=== PATIENT | male | born 1975 | race Caucasian/White ===

== ENCOUNTER 2017-12-08 13:13 | Emergency (ER) | payer SELFPAY ==
[~2017-12-08] VITALS: Ht 177.8 cm; Wt 100.0 kg
[~2017-12-08 13:13] MED LIST: ALBU8I INH; IBUP600T26 PO; ZOFR4TAB3 PO; [UNRECOGNIZED DRUG - REMARK]
[2017-12-08 13:38] VITALS: BP 188/84; PULSE 99; RESP 16; TEMP 98.4; O2SAT 97
[2017-12-08] MEDS ORDERED: XOPEAER4 INH (13:49)
[2017-12-08] MEDS ORDERED: LISI-519 PO (13:49)
--- NOTE | 2017-12-08 14:07 | PD ---
HPI Chief Complaint: Musculoskeletal Complaint Time Seen by Provider: 13:59 Travel History International Travel<30 days: No Contact w/Intl Traveler<30days: No Traveled to known affect area: No History of Present Illness HPI 42-year-old male presents for evaluation of left knee pain. Symptoms started 5 days ago when he was doing yardwork. He believes that he twisted his knee. He has been ambulating with a walker. Pain is aching, worse with flexion, ambulation. He has been using ibuprofen with mild relief. He has no other complaints at this time. [facility] Past Medical History Asthma: Yes High Cholesterol: Yes COPD: Yes Diminished Hearing: No Hypertension: Yes Respiratory: Yes (ASTHMA) Tetanus Vaccination: Unknown Influenza Vaccination: No ?: Not Past Surgical History Genitourinary Surgery: Yes (undecendid testicle) Tonsillectomy: Yes Family History Family Hypercholesterolemia: Yes Social History Alcohol Use: Yes (12 PK A WEEK ) Tobacco Use: No (former) Substance Use: No (COCAINE (DENIES)) Allergies-Medications (Allergen,Severity, Reaction): Coded Allergies: No Known Allergies (Unverified Adverse Reaction, Unknown, 12/08/17) Reported Meds & Prescriptions Reported Meds & Active Scripts Active Review of Systems General / Constitutional: No: Fever, Chills Musculoskeletal: Positive: Limited ROM, Pain Physical Exam Narrative GENERAL: Well-nourished male in no acute distress SKIN: Warm and dry. Minor abrasions noted to the left ankle. HEAD: Atraumatic. Normocephalic. EYES: Pupils equal and round. No scleral icterus. No injection or drainage. ENT: No nasal bleeding or discharge. Mucous membranes pink and moist. NECK: Trachea midline. No JVD. CARDIOVASCULAR: Regular rate and rhythm. No murmur appreciated. RESPIRATORY: No accessory muscle use. Clear to auscultation. Breath sounds equal bilaterally. MUSCULOSKELETAL: No obvious deformities. Tender to palpation inferior aspect of left knee joint. There is pain with flexion and extension. There is no obvious laxity on anterior/posterior stress. Distal pulses, sensation preserved. NEUROLOGICAL: Awake and alert. No obvious cranial nerve deficits. Motor grossly within normal limits. Normal speech. Data Data Last Documented VS Vital Signs Date Time Temp Pulse Resp B/P (MAP) Pulse Ox O2 Delivery O2 Flow Rate FiO2 12/08/17 13:38 98.4 99 16 188/84 (738) 71 Orders Orders Knee, Complete (4vws) (12/08/17 ) MDM Medical Decision Making Medical Screen Exam Complete: Yes Emergency Medical Condition: Yes Medical Record Reviewed: Yes Differential Diagnosis Ligamentous disruption, meniscal disruption, strain, fracture Narrative Course 42-year-old male with left knee pain after twisting his knee doing yardwork. Extremities reveals small joint effusion with no acute bony abnormality. The patient is currently using a walker. He will be given a knee immobilizer. Recommend an outpatient follow-up with primary care physician in 2 weeks for possible MRI imaging if symptoms persist. Diagnosis Primary Impression: Knee internal derangement Additional Instructions: Take Tylenol or Motrin for pain. Rest. Ice several times a day 15 minutes at a time. Follow-up with primary care physician in 2 weeks. Return for any emergent medical conditions. Med/Other Pt SpecificInfo: Orthopedic Instructions Disposition: 01 DISCHARGE HOME Condition: Stable Joesph Sims Dec 08, 2017 14:07
--- NOTE | 2017-12-08 14:28 | RADRPT ---
EXAM DATE/TIME: 12/08/2017 14:12 [facility] COMPARISON: No previous studies available for comparison. INDICATIONS : Left knee pain with no injury . MEDICAL HISTORY : None. SURGICAL HISTORY : None. ENCOUNTER: Initial ACUITY: 4 - 6 days PAIN SCORE: 9/10 LOCATION: Left anterior knee FINDINGS: Multiple views of the left knee were obtained and demonstrate diffuse osteopenia and normal alignment . There is no acute fracture underlying bony abnormality. The joint spaces are preserved. There is mi ld fullness in the suprapatella bursa region. There is no evidence of a joint body. CONCLUSION: Osteopenia and small joint effusion. Stephane Faulkner MD on December 08, 2017 at 14:25 Board Certified Radiologist. This report was verified electronically.
== END 2017-12-08 15:19 | disposition home or self-care (01) ==
LOC: PHEFT 13:13
DX: M23.90 Unspecified internal derangement of unspecified knee (principal); E78.00 Pure hypercholesterolemia, unspecified; J44.9 Chronic obstructive pulmonary disease, unspecified; I10 Essential (primary) hypertension
CPT/HCPCS: 73564; 99283; L1830

== ENCOUNTER 2018-03-08 17:30 | Emergency (ER) | payer SELFPAY ==
[~2018-03-08] VITALS: Ht 180.3 cm; Wt 93.6 kg
[~2018-03-08 17:30] MED LIST changes: -ALBU8I INH; -IBUP600T26 PO; +LISI-519 PO; +XOPEAER4 INH; -ZOFR4TAB3 PO; -[UNRECOGNIZED DRUG - REMARK]
[2018-03-08 17:31] VITALS: BP 168/95; PULSE 114; RESP 18; TEMP 97.5; O2SAT 97
[2018-03-08] MEDS ORDERED: SODIUM CHLORIDE 0.9% FLUSH 10 ML FLUSH IVF PRN (17:45)
[2018-03-08] MEDS ORDERED: methylPREDNISolone SOD SUCC 125 MG/2 ML VIAL IV PUSH ONE (17:45)
[2018-03-08] MEDS ORDERED: SODIUM CHLOR 0.9% 1000 ML INJ 1,000 ML IV ONE (17:45)
[2018-03-08] MEDS: RESP: ALBUTEROL 2.5 MG/IPRATROPIUM 0.5 MG NEB (SCH) INH ×2 (17:50→17:51)
--- NOTE | 2018-03-08 17:52 | PD ---
HPI Chief Complaint: Respiratory Symptoms Time Seen by Provider: 17:38 Travel History International Travel<30 days: No Contact w/Intl Traveler<30days: No Traveled to known affect area: No History of Present Illness HPI Patient is a 42 year old male who presents to the ER with c/o of COPD exacerbation. Patient reports that he has had a nonproductive cough, wheezing, has been having fevers and chills for the past 2 days. Patient reports that he has run out of his albuterol nebulizers as well as his rescue inhaler. Patient reports that he was a past smoker. He did not have the influenza vaccine this year. Denies chest pain. Reports SOB with wheezing. PFSH Past Medical History Asthma: Yes Cardiovascular Problems: Yes (htn on meds) High Cholesterol: Yes COPD: Yes Diminished Hearing: No Hypertension: Yes Respiratory: Yes (asthma, copd) Past Surgical History Genitourinary Surgery: Yes (undecendid testicle) Tonsillectomy: Yes Family History Family Hypercholesterolemia: Yes Social History Alcohol Use: Yes (12 PK A WEEK ) Tobacco Use: No (former) Substance Use: No (COCAINE (DENIES)) Allergies-Medications (Allergen,Severity, Reaction): Coded Allergies: No Known Allergies (Unverified Adverse Reaction, Unknown, 03/08/18) Reported Meds & Prescriptions Reported Meds & Active Scripts Active Albuterol Neb (Albuterol Sulfate) 2.5 Mg/3 Ml Neb 2.5 Mg NEB Q4HR NEB While awake Prednisone 20 Mg Tab 20 Mg PO BID 5 Days Proair Hfa 8.5 GM Inh (Albuterol Sulfate) 90 Mcg/Act Aer 2 Puff INH Q4-6H PRN 108 mcg/actuation Azithromycin 500 Mg Tab 500 Mg PO DAILY Reported Albuterol Neb (Albuterol Sulfate) 0.63 Mg/3 Ml Neb 0.63 Mg NEB Q4HR NEB PRN Lisinopril 20 Mg Tab 20 Mg PO DAILY Xopenex Hfa 15 GM Inh (Levalbuterol 15 GM Inh) 45 Mcg/Act Aer 90 Mcg INH Q4HR Shake well before using. (1 puff = 45 mcg) Review of Systems General / Constitutional: Positive: Fever, No: Chills Eyes: No: Visual changes HENT: No: Headaches Cardiovascular: No: Chest Pain or Discomfort Respiratory: Positive: Cough, Shortness of Breath, Wheezing Gastrointestinal: No: Abdominal Pain Genitourinary: No: Dysuria Musculoskeletal: No: Pain Skin: No Rash Neurologic: No: Weakness Psychiatric: No: Depression Endocrine: No: Polydipsia Hematologic/Lymphatic: No: Easy Bruising Physical Exam Narrative GENERAL: mild distress SKIN: Focused skin assessment warm/dry. HEAD: Atraumatic. Normocephalic. EYES: Pupils equal and round. No scleral icterus. No injection or drainage. ENT: No nasal bleeding or discharge. Mucous membranes pink and moist. NECK: Trachea midline. No JVD. CARDIOVASCULAR: Tachycardia. No murmur appreciated. RESPIRATORY: Diffuse wheezing. Clear to auscultation. Breath sounds equal bilaterally. GASTROINTESTINAL: Abdomen soft, non-tender, nondistended. Hepatic and splenic margins not palpable. MUSCULOSKELETAL: No obvious deformities. No clubbing. No cyanosis. No edema. NEUROLOGICAL: Awake and alert. No obvious cranial nerve deficits. Motor grossly within normal limits. Normal speech. PSYCHIATRIC: Appropriate mood and affect; insight and judgment normal. Data Data Last Documented VS Vital Signs Date Time Temp Pulse Resp B/P (MAP) Pulse Ox O2 Delivery O2 Flow Rate FiO2 03/08/18 18:09 93 Room Air 03/08/18 18:07 105 20 03/08/18 17:31 97.5 168/95 (119) Orders Orders Complete Blood Count With Diff (03/08/18 17:42) Basic Metabolic Panel (Bmp) (03/08/18 17:42) Influenzae A/B Antigen (03/08/18 17:42) Iv Access Insert/Monitor (03/08/18 17:42) Ecg Monitoring (03/08/18 17:42) Oximetry (03/08/18 17:42) Chest, Single Ap (03/08/18 17:42) Sodium Chloride 0.9% Flush (Ns Flush) (03/08/18 17:45) Methylprednisolone So Succ Inj (Solumedr (03/08/18 17:45) Albuterol-Ipratropium Neb (Duoneb Neb) (03/08/18 17:45) Sodium Chlor 0.9% 1000 Ml Inj (Ns 1000 M (03/08/18 17:45) Azithromycin Inj (Zithromax Inj) (03/08/18 18:30) Labs Laboratory Tests Test 03/08/18 17:58 White Blood Count 11.7 TH/MM3 Red Blood Count 5.06 MIL/MM3 Hemoglobin 14.3 GM/DL Hematocrit 42.4 % Mean Corpuscular Volume 83.8 FL Mean Corpuscular Hemoglobin 28.2 PG Mean Corpuscular Hemoglobin Concent 33.6 % Red Cell Distribution Width 13.6 % Platelet Count 302 TH/MM3 Mean Platelet Volume 7.9 FL Neutrophils (%) (Auto) 77.2 % Lymphocytes (%) (Auto) 12.6 % Monocytes (%) (Auto) 7.6 % Eosinophils (%) (Auto) 1.6 % Basophils (%) (Auto) 1.0 % Neutrophils # (Auto) 9.0 TH/MM3 Lymphocytes # (Auto) 1.5 TH/MM3 Monocytes # (Auto) 0.9 TH/MM3 Eosinophils # (Auto) 0.2 TH/MM3 Basophils # (Auto) 0.1 TH/MM3 CBC Comment DIFF FINAL Differential Comment Blood Urea Nitrogen 8 MG/DL Creatinine 0.92 MG/DL Random Glucose 82 MG/DL Calcium Level 8.9 MG/DL Sodium Level 138 MEQ/L Potassium Level 3.5 MEQ/L Chloride Level 107 MEQ/L Carbon Dioxide Level 26.0 MEQ/L Anion Gap 5 MEQ/L Estimat Glomerular Filtration Rate 89 ML/MIN MDM Medical Decision Making Medical Screen Exam Complete: Yes Emergency Medical Condition: Yes Medical Record Reviewed: Yes Interpretation(s) Vital Signs Date Time Temp Pulse Resp B/P (MAP) Pulse Ox O2 Delivery O2 Flow Rate FiO2 03/08/18 18:09 93 Room Air 03/08/18 18:07 105 20 93 Room Air 03/08/18 17:31 97.5 114 18 168/95 (119) 97 Differential Diagnosis COPD exacerbation, pneumonia, influenza Narrative Course During the course of the patients emergency department visit, the patients history, examination, and differential diagnosis were reviewed with the patient. The patient was placed on a monitor tech with oximetry and frequent blood pressure monitoring. The patient had an IV access obtained and blood work sent for analysis. The patient was initially provided IVF, IV steroids, neb treatments The patients laboratory studies were reviewed and remarkable for [-]. Radiology studies were reviewed and remarkable for Last Impressions Chest X-Ray 03/08/18 8490 Signed Impressions: Service Date/Time: Thursday, March 08, 2018 17:51 - CONCLUSION: 1. No acute cardiopulmonary disease. Lavelle Bozorgmanesh, MD Microbiology Date/Time Source Procedure Growth Status 03/08/18 17:58 Nasal Aspirate Influenza Types A,B Antigen (DERRICK) - Final NEGATIVE FOR FLU A AND B ANTIGEN.... Complete Patient reevaluated, patient feeling much better at this time. Patient with decreased wheezing. Patient will be discharged home with prescription for steroids as well as albuterol. He will follow-up with his primary care doctor and will return to the emergency room as needed. Diagnosis Primary Impression: COPD with exacerbation Patient Instructions: General Instructions Additional Instructions: Please follow up with your primary care doctor in 2-3 days Return to the ER if symptoms worsen or progress Return to the ER as needed Med/Other Pt SpecificInfo: Prescription(s) given Scripts Albuterol Neb (Albuterol Neb) 2.5 Mg/3 Ml Neb 2.5 MG NEB Q4HR NEB for Breathing Treatment, #60 NEBULE 0 Refills While awake Prov: Blanca Stevenson DO 03/08/18 Prednisone (Prednisone) 20 Mg Tab 20 MG PO BID for 5 Days, #10 TAB 0 Refills Prov: Blanca Stevenson DO 03/08/18 Albuterol 8.5 GM Inh (Proair Hfa 8.5 GM Inh) 90 Mcg/Act Aer 2 PUFF INH Q4-6H Y for SHORTNESS OF BREATH, #1 INHALER 0 Refills 108 mcg/actuation Prov: Blanca Stevenson DO 03/08/18 Azithromycin (Azithromycin) 500 Mg Tab 500 MG PO DAILY for Infection, #5 TAB 0 Refills Prov: Blanca Stevenson DO 03/08/18 Disposition: 01 DISCHARGE HOME Condition: Stable Blanca Stevenson DO Mar 08, 2018 17:52
[2018-03-08] MEDS ORDERED: ALBU0.63 NEB (18:05)
[2018-03-08] MEDS ORDERED: LISI-515 PO (18:05)
--- NOTE | 2018-03-08 18:07 | RADRPT ---
EXAM DATE/TIME: 03/08/2018 17:51 [facility] COMPARISON: No previous studies available for comparison. INDICATIONS : Short of breath, chest pain MEDICAL HISTORY : Chronic obstructive pulmonary disease. SURGICAL HISTORY : None. ENCOUNTER: Initial ACUITY: 2 days PAIN SCORE: 8/10 LOCATION: Bilateral chest FINDINGS: A single view of the chest demonstrates the lungs to be symmetrically aerated without evidence of mas s, infiltrate or effusion. The cardiomediastinal contours are unremarkable. Osseous structures are intact. CONCLUSION: 1. No acute cardiopulmonary disease. Lavelle Almendarez MD on March 08, 2018 at 18:04 Board Certified Radiologist. This report was verified electronically.
[2018-03-08 18:09] VITALS: O2SAT 93
[2018-03-08 18:18] LABS: BASOPHIL # 0.1 TH/MM3 (0-0.2); EOSINOPHIL # 0.2 TH/MM3 (0-0.4); EOSINOPHIL % 1.6 % (0.0-4.0); HEMATOCRIT 42.4 % (39.0-51.0); HEMOGLOBIN 14.3 GM/DL (13.0-17.0); LYMPH % 12.6 % (9.0-44.0); LYMPHOCYTE # 1.5 TH/MM3 (1.0-4.8); MEAN CELL VOLUME 83.8 FL (80.0-100.0); MEAN CORPUSCULAR HEMOGLOBIN 28.2 PG (27.0-34.0); MEAN CORPUSCULAR HGB CONC 33.6 % (32.0-36.0); MEAN PLATELET VOLUME 7.9 FL (7.0-11.0); MONO % 7.6 % (0.0-8.0); MONOCYTE # 0.9 TH/MM3 (0-0.9); NEUT % 77.2 % (16.0-70.0); PLATELET COUNT 302 TH/MM3 (150-450); RED BLOOD COUNT 5.06 MIL/MM3 (4.50-5.90); RED CELL DISTRIBUTION WIDTH 13.6 % (11.6-17.2); WHITE BLOOD COUNT 11.7 TH/MM3 (4.0-11.0)
[2018-03-08] MEDS ORDERED: AZITHROMYCIN INJ 500 MG in SODIUM CHLOR 0.9% 250 ML INJ 250 ML IV ONE (18:30)
[2018-03-08 18:31] LABS: CALCIUM 8.9 MG/DL (8.5-10.1)
[2018-03-08 18:35] LABS: CREATININE 0.92 MG/DL (0.60-1.30)
[2018-03-08] MEDS ORDERED: AZIT500T2 PO (18:36)
[2018-03-08] MEDS ORDERED: PRED20 PO (18:36)
[2018-03-08] MEDS ORDERED: ALBUAER3 INH (18:36)
[2018-03-08] MEDS ORDERED: ALBU0.08 NEB (18:36)
[2018-03-08] MEDS ORDERED: AZITHROMYCIN 250 MG TAB PO ONE (19:00)
[2018-03-08 19:07] VITALS: BP 157/96; PULSE 72; RESP 20; O2SAT 98
== END 2018-03-08 19:13 | disposition home or self-care (01) ==
LOC: PHED 17:30
DX: J44.1 Chronic obstructive pulmonary disease with (acute) exacerbation (principal); R00.0 Tachycardia, unspecified; I10 Essential (primary) hypertension; Z87.891 Personal history of nicotine dependence; Z79.51 Long term (current) use of inhaled steroids; Z79.899 Other long term (current) drug therapy
CPT/HCPCS: 71045; 80048; 85025; 87804; 94640; 94664; 96361; 96374; 99284; J2930; J7030